=== PATIENT | female | born 1975 | race Caucasian/White ===

== ENCOUNTER 2016-06-06 12:02 | Outpatient (CLI) | payer MEDICAID, OTHER ==
--- NOTE | 2016-06-07 11:37 | Nuclear Medicine Report ---
NUCLEAR MEDICINE WHOLE-BODY BONE SCAN: 06/06/16 12:30:00 CLINICAL: Breast cancer restaging. COMPARISON: 11/17/15 TECHNIQUE: 25.0millicuries technetium 99m MDP was injected intravenously and whole body scans were obtained at 3 hours. FINDINGS: Normal distribution of radionuclide in the skeleton and soft tissues. No abnormal uptake. IMPRESSION: Normal study.
== END 2016-06-06 12:03 | disposition home or self-care (01) ==
LOC: NM 12:02
PROVIDERS: ATTEND Internal Medicine Hematology & Oncology
DX: C50.511 Malignant neoplasm of lower-outer quadrant of right female breast (principal)
CPT/HCPCS: 78306; A9503

== ENCOUNTER 2016-09-23 08:28 | Outpatient (CLI) | payer MEDICAID ==
--- NOTE | 2016-09-23 09:44 | Short Stay Summary ---
Invasive Assessment - Date Date of service: 09/23/16 - History & Physical H&P: obtained from office Allergies/Adverse Reactions: Allergies No Known Allergies Allergy (Verified 10/12/15 16:06) Home Medications: Home Medications Medication Instructions Recorded Confirmed Last Taken Type HYDROcodone/APAP 5-325 [[place] 1 each PO Q6HR PRN #30 tablet 12/01/14 Unknown Rx 5/325] Promethazine [Phenergan] 25 mg PO Q6H PRN #10 tablet 12/01/14 Unknown Rx - Procedure Note Procedure: right breast stereotactic biopsy with clip placement Findings: see path Pathology: list (core biopsy) Specimen disposition: to lab Estimated blood loss: none Tolerated Procedure Well: Yes Complications: none Invasive Assessment DC Note - Disposition Disposition: DISCHARGED TO HOME OR SELFCARE - Instructions Activity: no restrictions Follow up with: MIAH WHATLEY MD [Primary Care Provider] - 7 Days YANIV MARX MD [Staff Physician] - 7 Days
--- NOTE | 2016-09-23 12:34 | Mammography Report ---
Right Stereotactic Biopsy was performed by Dr. Carrasco. A specimen radiograph demonstrates rental representative calcifications in the specimen. For more details, please refer to her operative report.
--- NOTE | 2016-09-23 12:37 | Mammography Report ---
RIGHT DIGITAL DIAGNOSTIC MAMMOGRAM: 09/23/16 08:28:00 CLINICAL: For clip placement immediately status post stereotactic biopsy. COMPARISON:08/07/16 FINDINGS: A biopsy clip is now identified in the upper outer quadrant at the site of today's stereotactic biopsy. Calcifications have been removed but a few calcifications remaining near the clip. A 1.4 cm hematoma at the site. A larger U-shaped lateral clip correlates with a remote biopsy. IMPRESSION: Concordant clip placement status post stereotactic biopsy. BI-RADS CATEGORY: 4--Suspicious Pathology pending.
--- NOTE | 2016-09-23 15:14 | Operative Report ---
PREOPERATIVE DIAGNOSIS: Right breast microcalcifications, upper outer quadrant. POSTOPERATIVE DIAGNOSIS: Right breast microcalcifications, upper outer quadrant. PROCEDURE: Right breast stereotactic biopsy with clip placement. TYPE OF ANESTHESIA: Local. SURGEON: Marisa Carrasco MD LIMOUSINE DRIVER: Dr. Jaime Ansari. ESTIMATED BLOOD LOSS: Less than 10 mL. COMPLICATIONS: None. INDICATIONS: This is a 41-year-old woman with known metastatic right breast cancer who was noted to have a new cluster of microcalcifications in the right upper outer quadrant requiring biopsy for diagnosis. DESCRIPTION OF PROCEDURE: The patient was brought to the stereotactic room at [facility]. She was laid prone on the table. Mechanical Project Manager and stereotactic images were taken and microcalcifications of concern were targeted. The breast was then prepped with Betadine and then 8 gauge mammotome device was utilized to do the biopsy initially. The lesions were targeted and in the target site, 1% lidocaine was infiltrated. Next, the mammotome device was introduced, stereotactic images confirmed the placement. The biopsy gun was then fired. Again, stereotactic images confirmed the placement. Next, circumferential biopsy was performed using the 8 gauge mammotome device. The specimen mammogram showed removal of microcalcifications of concern. At this point, the clip was placed and the probe was removed from the breast, stereotactic images confirmed the placement of the clip and removal of the microcalcifications of concern. The skin priti was reapproximated using Steri-Strips and a sterile dressing was applied. The patient tolerated the procedure. There were no immediate complications. JOB# [id number] BRYANNA/JOCELYN
== END 2016-09-23 08:29 | disposition home or self-care (01) ==
LOC: SPVWC 08:28
PROVIDERS: ATTEND Surgery
DX: R92.0 Mammographic microcalcification found on diagnostic imaging of breast (principal)
CPT/HCPCS: 19081; 88305; A4648; G0206; 88361

== ENCOUNTER 2016-10-10 07:49 | Outpatient (CLI) | payer MEDICAID ==
--- NOTE | 2016-10-11 07:45 | PET Report ---
PET SB TO MT SUBSEQUENT: HISTORY: Right breast cancer. TECHNIQUE: 12.1 millicuries F-18 FDG was administered intravenously. Noncontrast CT images and PET images were obtained from the skull base to the proximal thighs. Fused images were reviewed on a workstation. The patient's blood glucose level measured 106. COMPARISON: No previous PET CT. CT chest abdomen and pelvis dated 11/17/15. FINDINGS: BRAIN: physiologic FDG uptake in the imaged brain. NECK: physiologic FDG uptake. MEDIASTINUM: physiologic FDG uptake. LUNGS: physiologic FDG uptake. 5 mm right upper lobe nodule is unchanged since 11/17/15 CT chest. The nodule is hypometabolic. CHEST WALL: Physiologic FDG uptake. Surgical clip in the lower outer quadrant of the right breast is noted. PLEURA/PERICARDIUM: physiologic FDG uptake. THORACIC LYMPH NODES: physiologic FDG uptake. 2 normal sized right axillary lymph nodes demonstrate max SUV values of 1.8 and 2.2. HEPATOBILIARY: physiologic FDG uptake. Mean liver SUV measures 4.5. PANCREAS: physiologic FDG uptake. SPLEEN: physiologic FDG uptake. ADRENAL GLANDS: physiologic FDG uptake. KIDNEYS/RENAL COLLECTING SYSTEMS: physiologic FDG uptake. BOWEL/MESENTERY: physiologic FDG uptake. PELVIC VISCERA: physiologic FDG uptake. ABDOMINAL/PELVIC LYMPH NODES: physiologic FDG uptake. MUSCULOSKELETAL: physiologic FDG uptake. IMPRESSION: Negative PET/CT. No evidence for disease recurrence or metastasis.
== END 2016-10-10 07:50 | disposition home or self-care (01) ==
LOC: PET 07:49
PROVIDERS: ATTEND Internal Medicine Hematology & Oncology
DX: C50.511 Malignant neoplasm of lower-outer quadrant of right female breast (principal); R91.1 Solitary pulmonary nodule
CPT/HCPCS: 78815; 82962; A9552

== ENCOUNTER 2017-05-01 08:56 | Outpatient (CLI) | payer MEDICAID ==
--- NOTE | 2017-05-03 10:12 | PET Report ---
PET SB TO MT SUBSEQUENT: HISTORY: Restaging of right breast cancer. TECHNIQUE: 13.0 millicuries F-18 FDG was administered intravenously. Noncontrast CT images and PET images were obtained from the skull base to the proximal thighs. Fused images were reviewed on a workstation. The patient's blood glucose level measured 116. COMPARISON: 10/10/16. FINDINGS: BRAIN: physiologic FDG uptake in the imaged brain. NECK: physiologic FDG uptake. CHEST WALL: Surgical changes are suggested in the right breast. No recurrent breast mass or chest wall mass. MEDIASTINUM: physiologic FDG uptake. LUNGS: physiologic FDG uptake. PLEURA/PERICARDIUM: physiologic FDG uptake. THORACIC LYMPH NODES: physiologic FDG uptake. HEPATOBILIARY: There is a new 4.9 x 3.6 cm hypodense mass in the posterior segment of the right hepatic lobe. Max SUV of this lesion measures 12.7. No other liver lesions identified. Mean liver SUV measures 4.4. PANCREAS: physiologic FDG uptake. SPLEEN: physiologic FDG uptake. ADRENAL GLANDS: physiologic FDG uptake. KIDNEYS/RENAL COLLECTING SYSTEMS: physiologic FDG uptake. BOWEL/MESENTERY: physiologic FDG uptake. PELVIC VISCERA: physiologic FDG uptake. ABDOMINAL/PELVIC LYMPH NODES: A new 1.4 cm helen hepatis lymph node demonstrates an SUV of 11.[address] image 136. A new 1.6 cm aortocaval lymph node demonstrates an SUV of 7.[address] image 143. MUSCULOSKELETAL: physiologic FDG uptake. IMPRESSION: Progression of disease is demonstrated since 10/10/16. A new, hypermetabolic right hepatic lobe mass is identified consistent with metastasis. This lesion should be accessible for percutaneous CT-guided biopsy if needed. There are also 2 new hypermetabolic lymph nodes in the helen hepatis chain and aortocaval chain consistent with metastatic disease.
== END 2017-05-01 08:57 | disposition home or self-care (01) ==
LOC: PET 08:56
PROVIDERS: ATTEND Internal Medicine Hematology & Oncology
DX: C50.511 Malignant neoplasm of lower-outer quadrant of right female breast (principal); K76.89 Other specified diseases of liver
CPT/HCPCS: 78815; 82962; A9552

== ENCOUNTER 2018-01-01 10:09 | Outpatient (CLI) | payer MEDICAID ==
--- NOTE | 2018-01-02 08:45 | PET Report ---
PET/CT:01/01/18 10:09:00 CLINICAL: Breast cancer restaging. RADIOPHARMACEUTICAL: 13.541mCi F18-FDG. COMPARISON: 05/01/17 and 10/10/16 PET/CT TECHNIQUE- Following intravenous injection of F-18 FDG and an approximately 60 minute uptake period, CT and PET images from the mid skull to the upper thighs were acquired with the patient in the fasted state. No contrast was administered. The CT protocol used for this PET CT study is designed for attenuation correction and anatomic localization of PET abnormalities. This field ring assembler CT is not desired to produce and cannot replace, egqbg-zl-paz-art diagnostic CT scans with specific imaging protocols for different body parts and indications. Plasma glucose at the time of this test: 104g/dl. The standardized uptake values (SUV) are normalized to patient body weight and indicate the highest activity concentration (SUV max) in a given disease site. FINDINGS: Brain--Physiologic FDG uptake in the visualized regions of the brain. Neck--Interval development of bilateral FDG avid lymphadenopathy. The largest lymph node and most FDG avid lymph node on the right is a level II jugular lymph nodes measuring 1.9 the 1.3 cm with FDG 12.1. A right level I FDG avid lymph node measures 1.1 x 0.9 cm with SUV 10.0. The most FDG avid left lymph node is a level IIIB lymph node with SUV 14.0. Margins of the lymph node are obscured so it cannot be accurately measured. A far posterior left level IIIB lymph node measures 1.6 x 1.1 cm with SUV 11.6. A left FDG avid supraclavicular lymph node measures 1.3 x 1.0 cm with SUV 6.5. Physiologic FDG uptake in mucosal structures. Chest--Physiologic FDG uptake in mediastinal blood pool and myocardium. No breast or chest wall mass. Lungs--No abnormal uptake. No pulmonary nodule or mass. Pleura/pericardium--No abnormal uptake. Thoracic nodes--No abnormal uptake. Hepatobiliary--No abnormal uptake and no liver mass. The previously described FDG avid right hepatic lesion has resolved. Liver background SUV mean, as a reference for comparing FDG studies, is 4.2 compared to 4.9 on the last exam. Spleen--No abnormal uptake. Pancreas--No abnormal uptake. Adrenal Glands--No abnormal uptake. Kidneys/Ureters/Bladder--No abnormal uptake. Abdominopelvic Nodes--No abnormal uptake. The previously described FDG avid helen hepatis lymph nodes have resolved. Bowel/Peritoneum/Mesentery--No abnormal uptake. Pelvic organs--No abnormal uptake. Bones/Soft Tissues--No abnormal uptake and no suspicious bone lesions. Other findings: Left Kwessk-n-Erwh tip is in the SVC. IMPRESSION- 1. Mixed response to therapy with resolution of hepatic and abdominal nima metastases but interval development of suspicious bilateral FDG avid lymphadenopathy of the neck. Several of the lymph nodes would be amenable to CT-guided or perhaps ultrasound-guided needle biopsy. 2. No evidence of pulmonary, hepatic, abdominal nima or skeletal metastasis.
== END 2018-01-01 10:10 | disposition home or self-care (01) ==
LOC: PET 10:09
PROVIDERS: ATTEND Internal Medicine Hematology & Oncology
DX: C50.511 Malignant neoplasm of lower-outer quadrant of right female breast (principal)
CPT/HCPCS: 78815; 82962; A9552

== ENCOUNTER 2018-08-27 07:25 | Outpatient (CLI) | payer MEDICAID ==
--- NOTE | 2018-08-27 13:00 | PET Report ---
PET/CT:08/27/18 07:25:00 CLINICAL: Breast cancer restaging. RADIOPHARMACEUTICAL: 13.841mCi F18-FDG. COMPARISON: 05/21/18 PET/CT TECHNIQUE- Following intravenous injection of F-18 FDG and an approximately 60 minute uptake period, CT and PET images from the mid skull to the upper thighs were acquired with the patient in the fasted state. No contrast was administered. The CT protocol used for this PET CT study is designed for attenuation correction and anatomic localization of PET abnormalities. This boat wrapper CT is not desired to produce and cannot replace, gcuiq-ui-ada-art diagnostic CT scans with specific imaging protocols for different body parts and indications. Plasma glucose at the time of this test: 109g/dl. The standardized uptake values (SUV) are normalized to patient body weight and indicate the highest activity concentration (SUV max) in a given disease site. FINDINGS: Brain--Physiologic FDG uptake in the visualized regions of the brain. Neck--Physiologic FDG uptake in mucosal structures and no abnormal uptake. No FDG avid lymphadenopathy. The previously identified FDG avid right cervical dominant lymph node measures 1.2 x 0.7 cm image 35, series 1 and is stable in size since the last exam. Chest--Physiologic FDG uptake in mediastinal blood pool and myocardium. A biopsy clip in the lower outer right breast. No breast mass or chest wall mass. Lungs--No abnormal uptake. No pulmonary nodule or mass. Pleura/pericardium--No abnormal uptake. Thoracic nodes--No abnormal uptake. Hepatobiliary--No abnormal uptake. Liver background SUV mean, as a reference for comparing FDG studies, is 3.5 compared to 3.6 on the last exam. No liver mass. Spleen--No abnormal uptake. Pancreas--No abnormal uptake. Adrenal Glands--No abnormal uptake. Kidneys/Ureters/Bladder--No abnormal uptake. Abdominopelvic Nodes--No abnormal uptake. Bowel/Peritoneum/Mesentery--No abnormal uptake. Pelvic organs--No abnormal uptake. Bones/Soft Tissues--No abnormal uptake and no suspicious bone lesions. IMPRESSION- Negative study.No evidence of disease recurrence or metastasis.
== END 2018-08-27 07:26 | disposition home or self-care (01) ==
LOC: PET 07:25
PROVIDERS: ATTEND Internal Medicine Hematology & Oncology
DX: C50.511 Malignant neoplasm of lower-outer quadrant of right female breast (principal)
CPT/HCPCS: 78815; 82962; A9552

== ENCOUNTER 2018-09-26 20:34 | Emergency (ER) | payer MEDICAID ==
--- NOTE | 2018-09-26 21:14 | Cat Scan Report ---
PROCEDURE: CT HEAD/BRAIN WO CON TECHNIQUE: Computerized tomography of the head was performed without contrast material. CT DOSE LENGTH PRODUCT: 805.4 mGycm HISTORY: neuro deficits <6hrs or sx present upon awakening COMPARISONS: None . FINDINGS: Skull and scalp: Normal . Paranasal sinuses: Normal . Ventricles and subarachnoid spaces: Normal . Cerebrum: No evidence of hemorrhage, acute infarction or mass . Cerebellum and brainstem: No evidence of hemorrhage, acute infarction or mass . Vasculature: Normal . Other: None . ASPECTS: 10 IMPRESSION: Normal Examination . This document is electronically signed by Jeffrey Ann MD., September 26 2018 09:13:25 PM ET
[2018-09-26 21:35] LABS: Basophils # (Auto) 0.1 K/mm3 (0.0-0.1); Basophils % (Auto) 0.8 % (0.0-1.8); Eosinophils # (Auto) 0.3 K/mm3 (0.0-0.4); Eosinophils % (Auto) 4.5 % (0.0-4.3); Hematocrit 37.4 % (30.3-42.9); Hemoglobin 12.8 gm/dl (10.1-14.3); Lymphocytes % (Auto) 27.5 % (13.4-35.0); Mean Corpuscular HGB Conc 34 % (30-34); Mean Corpuscular Volume 82 fl (79-97); Monocytes # (Auto) 0.5 K/mm3 (0.0-0.8); Monocytes % (Auto) 6.6 % (0.0-7.3); Red Blood Count 4.54 M/mm3 (3.65-5.03); Red Cell Distribution Width 15.4 % (13.2-15.2)
[2018-09-26 21:37] LABS: INR 1.03 (0.87-1.13)
[2018-09-26 21:38] LABS: Partial Thromboplastin Time 26.1 Sec. (24.2-36.6)
[2018-09-26 21:42] LABS: BUN/Creatinine Ratio 14; Blood Urea Nitrogen 13 mg/dL (7-17); Calcium 9.8 mg/dL (8.4-10.2); Hemolysis Index 6
[2018-09-26 22:02] LABS: Platelet Count 96 K/mm3 (140-440)
--- NOTE | 2018-09-27 01:00 | Emergency Department Report ---
ED Neuro Deficit HPI - General Chief Complaint: Neuro Symptoms/Deficit Stated Complaint: LEFT SIDE NUMBNESS/PAIN Time Seen by Provider: 09/27/18 00:42 Source: patient Mode of arrival: Ambulatory Limitations: No Limitations - History of Present Illness Initial Comments: Patient is a 43-year-old female that presents emergency room with complaints of left arm pain and left leg pain. Patient states she has numbness. Patient states her symptoms have resolved. Patient states her symptoms started yesterday and resolved approximately 2 hours ago. Patient states her pain was a 8 out of 10. Patient denies chest pain. Patient denies shortness of breath. Patient denies any other symptoms. Patient denies slurred speech. Denies difficulty talking. Patient denies facial droop. Patient at this time denies arm numbness and arm pain and at This time denies left leg pain -: Sudden History of same: No Place: home Severity: moderate Quality: numb Improves With: time Worsens With: none On Anticoagulants: No Context: sudden onset Associated Symptoms: denies other symptoms - Related Data Home Medications: Previous Rx's Medication Instructions Recorded Last Taken Type HYDROcodone/APAP 5-325 [[place] 1 each PO Q6HR PRN #30 tablet 12/01/14 Unknown Rx 5/325] Promethazine [Phenergan] 25 mg PO Q6H PRN #10 tablet 12/01/14 Unknown Rx Allergies/Adverse Reactions: Allergies Allergy/AdvReac Type Severity Reaction Status Date / Time No Known Allergies Allergy Verified 10/12/15 16:06 ED Review of Systems ROS: Stated complaint: LEFT SIDE NUMBNESS/PAIN Other details as noted in HPI Constitutional: denies: chills, fever Eyes: denies: eye pain, eye discharge, vision change ENT: denies: ear pain, throat pain Respiratory: denies: cough, shortness of breath, wheezing Cardiovascular: denies: chest pain, palpitations Endocrine: no symptoms reported Gastrointestinal: denies: abdominal pain, nausea, diarrhea Genitourinary: denies: urgency, dysuria, discharge Musculoskeletal: denies: back pain, joint swelling, arthralgia Skin: denies: rash, lesions Neurological: numbness. denies: headache, weakness, paresthesias Psychiatric: denies: anxiety, depression Hematological/Lymphatic: denies: easy bleeding, easy bruising ED Past Medical Hx - Past Medical History Previous Medical History?: Yes Hx Hypertension: No Hx Renal Disease: No Hx of Cancer: Yes (Breast) Hx Seizures: No Additional medical history: Chemo Q3 weeks, TB Medicine X 4 months - Surgical History Past Surgical History?: Yes Hx Breast Surgery: Yes (RIGHT BREAST AND AXILLARY CORE BX 10-26-14) - Family History Family history: no significant - Social History Smoking Status: Never Smoker Substance Use Type: None - Medications Home Medications: Home Medications Medication Instructions Recorded Confirmed Last Taken Type HYDROcodone/APAP 5-325 [[place] 1 each PO Q6HR PRN #30 tablet 12/01/14 Unknown Rx 5/325] Promethazine [Phenergan] 25 mg PO Q6H PRN #10 tablet 12/01/14 Unknown Rx ED Neuro Physical Exam - General Limitations: No Limitations General appearance: alert, in no apparent distress Suspected Stroke: No - Head Head exam: Present: atraumatic, normocephalic - Eye Eye exam: Present: normal appearance - ENT ENT exam: Present: mucous membranes moist - Neck Neck exam: Present: normal inspection - Respiratory Respiratory exam: Present: normal lung sounds bilaterally. Absent: respiratory distress - Cardiovascular Cardiovascular Exam: Present: regular rate, normal rhythm. Absent: systolic murmur, diastolic murmur, rubs, gallop - GI/Abdominal GI/Abdominal exam: Present: soft, normal bowel sounds - Rectal Rectal exam: Present: deferred - Extremities Exam Extremities exam: Present: normal inspection - Back Exam Back exam: Present: normal inspection - Neurological Exam Neurological exam: Present: alert, oriented X3 - NIHSS Assessment Interval: Baseline 1a. Level of Consciousness: alert/keenly responsive 1b. LOC Questions: answers both correctly 1c. LOC Commands: performs tasks correctly 2. Best Gaze: normal 3. Visual: no visual loss 4. Facial Palsy: normal symmetrical movement 5b. Motor Arm Right: no drift 5a. Motor Arm Left: no drift 6a. Motor Leg Left: no drift 6b. Motor Leg Right: no drift 7. Limb Ataxia: absent 8. Sensory: normal 9. Best Language: no aphasia 10. Dysarthria: normal 11. Extinction/Inattention: no abnormality Total Score: 0 Stroke Severity: No Stroke Symptoms - Psychiatric Psychiatric exam: Present: normal affect, normal mood - Skin Skin exam: Present: warm, dry, intact, normal color. Absent: rash ED Course Vital Signs 0409/27/18 09/27/18 20:42 00:55 01:34 Temperature 98.1 F Pulse Rate 85 80 66 Respiratory 18 14 14 Rate Blood Pressure 151/90 Blood Pressure 152/93 143/93 [Left] O2 Sat by Pulse 100 99 100 Oximetry - Reevaluation(s) Reevaluation #1: Discussed all results with patient. Patient's results are normal. Patient stable for discharge. Patient given discharge instructions. Patient voiced understanding of discharge instructions. Patient will be discharged home. 09/27/18 00:58 - Lab Data Result diagrams: 09/26/18 21:08 09/26/18 21:08 Lab Results 09/26/18 09/26/18 09/26/18 Range/Units 21:08 21:08 21:08 WBC 7.3 (4.5-11.0) K/mm3 RBC 4.54 (3.65-5.03) M/mm3 Hgb 12.8 (10.1-14.3) gm/dl Hct 37.4 (30.3-42.9) % MCV 82 (79-97) fl MCH 28 (28-32) pg MCHC 34 (30-34) % RDW 15.4 H (13.2-15.2) % Plt Count 96 L (140-440) K/mm3 Lymph % (Auto) 27.5 (13.4-35.0) % [place] % (Auto) 6.6 (0.0-7.3) % Eos % (Auto) 4.5 H (0.0-4.3) % Baso % (Auto) 0.8 (0.0-1.8) % Lymph # 2.0 (1.2-5.4) K/mm3 [place] # 0.5 (0.0-0.8) K/mm3 Eos # 0.3 (0.0-0.4) K/mm3 Baso # 0.1 (0.0-0.1) K/mm3 Seg Neutrophils % 60.6 (40.0-70.0) % Seg Neutrophils # 4.4 (1.8-7.7) K/mm3 PT 14.1 (12.2-14.9) Sec. INR 1.03 (0.87-1.13) APTT 26.1 (24.2-36.6) Sec. Thrombin Time (15.1-19.6) Sec. Sodium 137 (137-145) mmol/L Potassium 4.4 (3.6-5.0) mmol/L Chloride 100.2 (98-107) mmol/L Carbon Dioxide 25 (22-30) mmol/L Anion Gap 16 mmol/L BUN 13 (7-17) mg/dL Creatinine 0.9 (0.7-1.2) mg/dL Estimated GFR > 60 ml/min BUN/Creatinine Ratio 14 % Glucose 153 H (65-100) mg/dL Calcium 9.8 (8.4-10.2) mg/dL Troponin T < 0.010 (0.00-0.029) ng/mL 09/26/18 Range/Units 21:08 WBC (4.5-11.0) K/mm3 RBC (3.65-5.03) M/mm3 Hgb (10.1-14.3) gm/dl Hct (30.3-42.9) % MCV (79-97) fl MCH (28-32) pg MCHC (30-34) % RDW (13.2-15.2) % Plt Count (140-440) K/mm3 Lymph % (Auto) (13.4-35.0) % [place] % (Auto) (0.0-7.3) % Eos % (Auto) (0.0-4.3) % Baso % (Auto) (0.0-1.8) % Lymph # (1.2-5.4) K/mm3 [place] # (0.0-0.8) K/mm3 Eos # (0.0-0.4) K/mm3 Baso # (0.0-0.1) K/mm3 Seg Neutrophils % (40.0-70.0) % Seg Neutrophils # (1.8-7.7) K/mm3 PT (12.2-14.9) Sec. INR (0.87-1.13) APTT (24.2-36.6) Sec. Thrombin Time 16.5 (15.1-19.6) Sec. Sodium (137-145) mmol/L Potassium (3.6-5.0) mmol/L Chloride (98-107) mmol/L Carbon Dioxide (22-30) mmol/L Anion Gap mmol/L BUN (7-17) mg/dL Creatinine (0.7-1.2) mg/dL Estimated GFR ml/min BUN/Creatinine Ratio % Glucose (65-100) mg/dL Calcium (8.4-10.2) mg/dL Troponin T (0.00-0.029) ng/mL - EKG Data -: EKG Interpreted by Me EKG shows normal: sinus rhythm, axis, intervals, QRS complexes, ST-T waves Rate: normal - Radiology Data Radiology results: report reviewed PROCEDURE: CT HEAD/BRAIN WO CON TECHNIQUE: Computerized tomography of the head was performed without contrast material. CT DOSE LENGTH PRODUCT: 805.4 mGycm HISTORY: neuro deficits <6hrs or sx present upon awakening COMPARISONS: None . FINDINGS: Skull and scalp: Normal . Paranasal sinuses: Normal . Ventricles and subarachnoid spaces: Normal . Cerebrum: No evidence of hemorrhage, acute infarction or mass . Cerebellum and brainstem: No evidence of hemorrhage, acute infarction or mass . Vasculature: Normal . Other: None . ASPECTS: 10 IMPRESSION: Normal Examination . - Medical Decision Making She is a 43-year-old female that presented to the emergency room with left arm pain and numbness and left leg pain. Patient's symptoms all resolved prior to coming to the emergency room. Patient stable at discharge. Patient will be discharged to follow up with her primary care. Patient's cardiac workup negative. Patient's labs negative. Patient's head CT negative. - Differential Diagnosis arm pain. Neuropathy. Leg pain. Critical care attestation.: If time is entered above; I have spent that time in minutes in the direct care of this critically ill patient, excluding procedure time. ED Disposition Clinical Impression: Arm numbness Arm pain Qualifiers: Laterality: left Qualified Code(s): M79.602 - Pain in left arm Leg pain Qualifiers: Laterality: left Qualified Code(s): M79.605 - Pain in left leg Disposition: DC-01 TO HOME OR SELFCARE Is pt being admited?: No Does the pt Need Aspirin: No Condition: Stable Instructions: Arthralgia (ED) Additional Instructions: Patient to follow-up with primary care in 2-3 days. Patient to take Tylenol or ibuprofen when necessary for pain. Patient to return to ER if condition worsens. Patient to increase water. Patient to rest. . Patient to continue all meds. Referrals: BENJA HARRIS MD [Staff Physician] - 2-3 Days GRIS BRIGGS MD [Staff Physician] - 2-3 Days Time of Disposition: 01:02
[2018-09-27 01:36] VITALS: BP 143/93
== END 2018-09-27 01:43 | disposition home or self-care (01) ==
LOC: ED 20:34
DX: R20.0 Anesthesia of skin (principal); M79.602 Pain in left arm; M79.605 Pain in left leg; Z98.890 Other specified postprocedural states
CPT/HCPCS: 36415; 70450; 80048; 84484; 85025; 85610; 85670; 85730; 93005; 93010; 99284

== ENCOUNTER 2020-12-10 22:12 | Emergency (ER) | payer MEDICAID | END 2020-12-10 23:05 | disposition left against medical advice (07) | LOC: ED 22:12 | DX: R07.89 Other chest pain (principal); Z53.21 Procedure and treatment not carried out due to patient leaving prior to being seen by health care provider ==

== ENCOUNTER 2022-01-10 08:14 | Outpatient (CLI) | payer MEDICAID ==
--- NOTE | 2022-01-10 09:45 | XRay Report ---
Left knee 3 views INDICATION: Knee pain FINDINGS: There is mild degenerative change in medial compartment and patellofemoral joint. Trace shahla nt effusion. No acute fracture dislocation. Signer Name: Bhavik Schmidt MD Signed: 01/10/2022 9:40 AM Workstation Name: [facility]
--- NOTE | 2022-01-10 09:49 | XRay Report ---
BILATERAL FEET 3 VIEWS INDICATION: PAIN IN FEET AND ANKLES. COMPARISON: None. IMPRESSION: No acute osseous abnormality or bone lesion. Mild osteoarthritic joint space narrowing is evident at the first metatarsophalangeal joints bilaterally. The remaining joint spaces are unrema rkable. Small bilateral plantar spurs are identified. The soft tissues are unremarkable. Signer Name: Paul Christensen Jr, MD Signed: 01/10/2022 9:45 AM Workstation Name: [id number]
== END 2022-01-10 08:15 | disposition home or self-care (01) ==
LOC: XRAY 08:14
PROVIDERS: ATTEND Orthopaedic Surgery
DX: M19.072 Primary osteoarthritis, left ankle and foot (principal); M19.071 Primary osteoarthritis, right ankle and foot; M77.52 Other enthesopathy of left foot and ankle; M77.51 Other enthesopathy of right foot and ankle; M17.12 Unilateral primary osteoarthritis, left knee
CPT/HCPCS: 73565